=== PATIENT | female | born 1990 | race Caucasian/White ===

== ENCOUNTER 2016-07-31 22:47 | Day surgery (SDC) | payer BC ==
[~2016-07-31] VITALS: Ht 175.3 cm; Wt 112.6 kg
--- NOTE | ~2016-07-31 | ER ---
PATIENT'S NAME: [facility] AGE: 25 Y [address] ROOM: [place] [address] LOCATION: [facility] ADMIT DATE: 08/01/2016 ER/Outpatient Report DISCHARGE DATE: FAMILY PHYSICIAN: Da Mahoney MD ATTENDING PHYSICIAN: Carol Gilbert CHIEF COMPLAINT: Possible kidney stone. TIME OF THE PATIENT ARRIVAL: 2247 hours. TIME OF THE PATIENT EVALUATION: 2255 hours. HISTORY OF PRESENT ILLNESS: This is a 25-year-old female who presents to ER who states she had a sudden- onset of right-sided flank pain approximately 30 minutes prior to her arrival. Does making her feel nauseated and vomiting. She has had no fever or chills and no troubles with urination. She states that she has had a history of kidney stones in the past and this feels exactly like that. She states that she has had to have lithotripsy done in the past and her last kidney stone she thinks was last year. She denies any fever or chills. No troubles with urination. No other problems at this time. ALLERGIES: NO KNOWN ALLERGIES. MEDICATIONS: Please medication list nurse's notes. PAST MEDICAL HISTORY: 1. Hypothyroidism. 2. Kidney stones. PAST SURGERIES: Lithotripsy. SOCIAL HISTORY: Denies smoking, drug, or alcohol use. REVIEW OF SYSTEMS: A 10-point review of systems was completed and was negative with the exception of those discussed in the HPI. PATIENT'S NAME: [facility] AGE: 25 Y [address] ROOM: [place] [address] LOCATION: [facility] ADMIT DATE: 08/01/2016 ER/Outpatient Report DISCHARGE DATE: FAMILY PHYSICIAN: Da Mahoney MD ATTENDING PHYSICIAN: Carol Gilbert PHYSICAL EXAMINATION: VITAL SIGNS: Height 5 feet, 9 inches stated, weight 107.1 kg taken, blood pressure is 128/66, pulse 84, respirations 16, temperature 97.3 degrees tympanically, and saturations 96% on room air. [place] Coma Score is 15. GENERAL: Alert, obese female, in [id number] distress. HEENT: Head: Normocephalic. Eyes: Pupils are equal and reactive to light. She does display moist mucous membranes. LUNGS: Clear to auscultation bilaterally. No wheezes or crackles. Normal respiratory effort. HEART: Regular rate and rhythm. No lifts, thrills, or murmurs. ABDOMEN: Soft. She has mild tenderness in her right-side of her abdomen. She has some mild right-sided CVA tenderness. NEURO: Cranial nerves 2 through 12 grossly intact. Gait is steady without assistance. LABORATORY DATA: Labs and CT are pending. EMERGENCY ROOM COURSE: An IV was established. I did give her some morphine, Toradol, and Zofran along with a liter of fluids while she was here and she remained comfortable for me. I will be turning the care of her over to Dr. Noble at this time due to shift change. The patient and the patient's mother understand and agree with care. BOBBY ASHFORD PA-C FOR MD KOMAL MARES/lanie /[id number] d: 08/01/16 0603 t: 08/07/16 0928, OUTPATIENT REPORT
--- NOTE | ~2016-07-31 | HP ---
PATIENT'S NAME: DEYSI [facility] AGE: 25 Y [address] ROOM: [place] [address] LOCATION: [facility] ADMIT DATE: 08/01/2016 History & Physical DISCHARGE DATE: FAMILY PHYSICIAN: Da Mahoney MD ATTENDING PHYSICIAN: Carol Gilbert DATE OF SERVICE: HISTORY OF PRESENT ILLNESS: The patient is a 25-year-old female, who had acute onset of right flank pain approximately 10 o'clock last night. The pain woke her up and she went to the emergency room, where abdominal and pelvic CT scan revealed a 3 mm proximal right ureter stone with mild hydronephrosis. The patient's urinalysis revealed nitrite positive urine with many bacteria present. In view of this, I discussed immediate cystoscopy with right stent placement with possible followup ESWL in 2 weeks or so. The patient reports a prior history of nephrolithiasis at a very early age in 8th grade requiring cystoscopy with stent placement and ESWL. PAST MEDICAL HISTORY: Significant for hypothyroidism and nephrolithiasis. PAST OPERATIONS: Include cystoscopy with stent placement and ESWL. MEDICATIONS: Synthroid. ALLERGIES: NONE. SOCIAL HISTORY: The patient is nonsmoker with no history of alcohol abuse. PHYSICAL EXAMINATION: GENERAL: Young female, in mild discomfort. EYES: Extraocular motions intact. EARS, NOSE, MOUTH, AND THROAT: No nasal or ear drainage noted. LUNGS: Clear bilaterally. CARDIAC: Regular rhythm and rate. ABDOMEN: Soft with normoactive bowel sounds throughout. There is right flank tenderness with palpation. NEUROLOGIC: Grossly intact. SKIN: Within normal limits. PATIENT'S NAME: DEYSI EVETTE O [facility] AGE: 25 Y [address] ROOM: [address] [address] LOCATION: [facility] ADMIT DATE: 08/01/2016 History & Physical DISCHARGE DATE: FAMILY PHYSICIAN: Da Mahoney MD ATTENDING PHYSICIAN: Carol iGlbert LABORATORY DATA: Again, urinalysis revealed nitrite positive urine with many bacteria present. ASSESSMENT: Infected 3 mm proximal right ureter stone. PLAN: We will take to OR urgently for cystoscopy with right stent placement. Risks and benefits were discussed. MD SACHA BROWN/lanie /[id number] CC: Da Mahoney MD D: [id number] T: [id number] HISTORY & PHYSICAL
--- NOTE | ~2016-07-31 | OR ---
PATIENT'S NAME: DEYSI [facility] AGE: 25 Y [address] ROOM: [place] [address] LOCATION: [facility] ADMIT DATE: 08/01/2016 OR/Procedure Report DISCHARGE DATE: FAMILY PHYSICIAN: Da Mahoney MD ATTENDING PHYSICIAN: Adalberto Farfan SURGEON: Adalberto Farfan MD CATTLE DRIVER: DATE OF PROCEDURE: 08/01/2016 POSTOPERATIVE DIAGNOSES: 1. Right proximal ureter stone. 2. Urinary tract infection. POSTOPERATIVE DIAGNOSES: 1. Right proximal ureter stone. 2. Urinary tract infection. PROCEDURES PERFORMED: Cystoscopy, right retrograde pyelogram, and right stent placement. ANESTHESIA: MAC. COMPLICATIONS: None. INDICATION FOR PROCEDURE: The patient is a 25-year-old female, who had acute onset of right flank pain last night. The patient was seen in the emergency room, where a CT scan performed revealing a 3 mm proximal right ureter stone with mild hydronephrosis. Urinalysis reveals nitrite-positive urine with many bacteria present. DETAILS OF PROCEDURE: After informed consent was obtained, the patient was taken to the operating room urgently. A MAC anesthetic was applied, and she was placed in a dorsal lithotomy position. The groin area was prepped and draped in normal sterile fashion. Cystoscope was introduced into the urethra and bladder without difficulty. The right ureteral orifice was identified and cannulated with a guidewire up into the renal pelvis. Next, a yellow Flexi- Tip catheter was placed over the guidewire into the distal ureter. The guidewire was removed and contrast was injected. The renal collecting system did not demonstrate significant hydronephrosis. The ureter was also not dilated. No definite stone was identified in the ureter. There was a small stone noted in the renal pelvis. Next, the guidewire was replaced and the open-ended catheter removed. A 6-Setswana multi-length ureteral stent was then passed over the guidewire up into the renal pelvis. Radiographic imaging showed good position of the stent. The bladder was empty and the procedure terminated. The patient tolerated the procedure well and transferred recovery PATIENT'S NAME: DEYSI [facility] AGE: 25 Y [address] ROOM: [place] [address] LOCATION: [facility] ADMIT DATE: 08/01/2016 OR/Procedure Report DISCHARGE DATE: FAMILY PHYSICIAN: Da Mahoney MD ATTENDING PHYSICIAN: Adalberto Farfan room in good condition. ADALBERTO FARFAN MD SACHA/modl /[id number] CC: Da Mahoney MD d: 08/01/16 1110 t: 08/06/16 1514, OPERATIVE SUMMARY
--- NOTE | ~2016-07-31 | ER ---
PATIENT'S NAME: EVETTE JO [facility] AGE: 25 Y [address] ROOM: [address] [address] LOCATION: [facility] ADMIT DATE: 08/01/2016 ER/Outpatient Report DISCHARGE DATE: FAMILY PHYSICIAN: Da Mahoney MD ATTENDING PHYSICIAN: Carol Gilbert HISTORY OF PRESENT ILLNESS: I received handoff of this patient to my primary responsibility from Ms Jose Alberto GRANADOS at 0000 hours. The patient's presentation is consistent with kidney stone versus UTI. Labs and imaging are pending at that time of hand off. Her labs returned concerning for UTI with nitrites in her urine. Minimal pyuria. The patient's vital signs remained appropriate. No elevation of her white count, renal functions appropriate. CT stone protocol reveals a small proximal right ureteral stone with mild hydronephrosis according to Radiology. In the setting of nitrite positive urine, I did contact Dr. Gilbert, urologist. Based on our discussion, he will take the patient to the operating room for stenting. The patient was given ciprofloxacin. Pain was adequately controlled with morphine. MD BORA MARES/lanie /[id number] d: 08/01/16 1211 t: 08/07/16 0925, OUTPATIENT REPORT
[2016-07-31 23:45] LABS: BASOPHIL # 0.1 K/uL (0.0-0.2); BASOPHIL % 0.8 %; EOSINOPHIL # 0.3 K/uL (0.0-0.5); HEMOGLOBIN 13.8 g/dL (11.0-15.0); IMMATURE GRANULOCYTE % 0.2 %; LYMPHOCYTE # 2.7 K/uL (0.8-4.0); LYMPHOCYTE % 27.1 %; MCH 29.2 pg (27.0-34.0); MCHC 33.7 gm/dL (32.0-36.5); MCV 86.9 fl (83.0-98.0); NEUTROPHIL # (ANC) 5.9 K/uL (1.8-7.8); NEUTROPHIL % 58.9 %; NRBC % 0 /100WBC (0-0.00); PLATELET COUNT 310 K/uL (150-450); RBC 4.72 M/uL (3.50-5.00); RDW-CV 12.3 % (11.9-14.6)
[2016-08-01 00:01] LABS: ALBUMIN 3.8 gm/dL (3.5-5.0); ALK PHOS 67 IU/L (33-138); ALT 18 IU/L (12-78); ANION GAP 10.8 (10.0-19.0); AST 17 IU/L (10-40); BLOOD UREA NITROGEN 11 mg/dL (6-24); CALCIUM 8.5 mg/dL (8.5-10.5); CHLORIDE 106 mMol/L (96-110); CO2 28 mMol/L (22-32); CREATININE 0.8 mg/dL (0.5-1.1); ESTIMATED GFR (MDRD EQUATION) > 60; POTASSIUM 3.8 mMol/L (3.7-5.1); SODIUM 141 mMol/L (135-145); TOTAL BILIRUBIN 0.4 mg/dL (0.0-1.5); TOTAL PROTEIN 7.5 g/dL (6.0-8.4)
[2016-08-01 00:31] LABS: BLOOD URINE 250 /UL (NEGATIVE); GLUCOSE URINE NEGATIVE (NEGATIVE); KETONE URINE 5 mg/dL (NEGATIVE); LEUKOCYTES URINE 100 /UL (NEGATIVE); NITRITE URINE POSITIVE (NEGATIVE); PROTEIN URINE 100 mg/dL (NEGATIVE); SPEC GRAVITY URINE 1.025 (1.003-1.035); UROBILINOGEN URINE 1 mg/dL (NORMAL)
[2016-08-01 00:39] LABS: COLOR URINE YELLOW (YELLOW); TURBIDITY URINE 2+ (CLEAR)
[2016-08-01 00:42] LABS: BACTERIA URINE MANY (NEGATIVE); RBC URINE 20-50 #/HPF (NEGATIVE)
[2016-08-01] MEDS ORDERED: LEVOTHROID(SYN75 MCG PO (05:37)
[2016-08-01] MEDS ORDERED: CODEINE30 MG PO (10:25)
[2016-08-01] MEDS ORDERED: BACTRIM DS1 TAB PO (10:26)
== END 2016-08-01 12:15 | disposition disaster alternative care site (69) ==
LOC: GMED 22:47 → G3N 08-01 02:23 → GSDC 08-01 02:23
PROVIDERS: Emergency Medicine
PROC: 0T768DZ Dilation of Right Ureter with Intraluminal Device, Via Natural or Artificial Opening Endoscopic (ICD-10-PCS; principal; 2016-08-01)
PROC: BT1DZZZ Fluoroscopy of Right Kidney, Ureter and Bladder (ICD-10-PCS; 2016-08-01)
DX: N13.6 Pyonephrosis (principal); E03.9 Hypothyroidism, unspecified
CPT/HCPCS: C1769; J0744; J1100; J1885; J2270; J2405; J3010; J7030; J7050

== ENCOUNTER → 2016-08-13 | Day surgery (SDC) | payer BC ==
[~2016-08-13] VITALS: Ht 177.8 cm; Wt 105.6 kg
[~2016-08-13] MED LIST: BACTRIM DS1 TAB PO; CODEINE30 MG PO; LEVOTHROID(SYN75 MCG PO
--- NOTE | ~2016-08-13 | OR ---
PATIENT'S NAME: EVETTE JO [facility] AGE: 25 Y [address] ROOM: [place] [address] LOCATION: [facility] ADMIT DATE: 08/13/2016 OR/Procedure Report DISCHARGE DATE: FAMILY PHYSICIAN: Da Mahoney MD ATTENDING PHYSICIAN: Carol Gilbert SURGEON: Carol Gilbert MD RESPIRATORY PHYSICIAN: DATE OF PROCEDURE: 08/13/2016 PREOPERATIVE DIAGNOSIS: Bilateral nephrolithiasis. POSTOPERATIVE DIAGNOSIS: Bilateral nephrolithiasis. PROCEDURE PERFORMED: 1. Bilateral extracorporeal shock wave lithotripsy. 2. Cystoscopy with right stent removal. ANESTHESIA: General. COMPLICATIONS: None. INDICATION FOR PROCEDURE: The patient is a 25-year-old female who previously had cystoscopy with right stent placement for a 3-mm proximal right ureter stone. On CT scan, she was noted to have bilateral nephrolithiasis. The patient presents for definitive treatment. DETAILS OF PROCEDURE: After informed consent was obtained, the patient was taken to the operating room. A general anesthetic was applied, and she was placed in supine position on the lithotripsy table. Fluoroscopy was used to target 5 x 4 mm right renal pelvic stone. She received shocks starting at 14 kilovolts and gradually increased to 24 kilovolts. She received a total of 2000 shocks with good fragmentation of the stone. The patient was then placed in a frog-leg position. The groin area was prepped and draped in normal sterile fashion. A flexible cystoscope was introduced into the urethra and bladder without difficulty. Her right ureteral stent was identified extruding from the right ureteral orifice. This was engaged with a grasping forceps and removed. The patient then repositioned on the lithotripsy table in a supine position and her left-sided 5 x 4 mm stone was identified final fluoroscopy. She received shocks starting at 20 kilovolts and gradually increased to 24 kilovolts. 1700 shocks were performed and the stone appeared to fragment well. A smaller 3-mm left renal pelvic stone was treated with 1000 shocks at 24 kilovolts and this fragmented well with treatment. The patient tolerated her procedure well and was transferred to recovery room in good condition. PATIENT'S NAME: EVETTE JO [facility] AGE: 25 Y [address] ROOM: [place] [address] LOCATION: [facility] ADMIT DATE: 08/13/2016 OR/Procedure Report DISCHARGE DATE: FAMILY PHYSICIAN: Da Mahoney MD ATTENDING PHYSICIAN: Carol Gilbert MD SACHA BROWN/modl /[id number] CC: Da Mahoney MD d: 08/13/16 2314 t: 08/27/16 1453, OPERATIVE SUMMARY
== END | disposition disaster alternative care site (69) ==
LOC: GPOC 08-09 09:00 → GSDC 09:00
PROC: 0TF3XZZ Fragmentation in Right Kidney Pelvis, External Approach (ICD-10-PCS; principal; 2016-08-13)
PROC: 0TP98DZ Removal of Intraluminal Device from Ureter, Via Natural or Artificial Opening Endoscopic (ICD-10-PCS; 2016-08-13)
DX: N13.2 Hydronephrosis with renal and ureteral calculous obstruction (principal); E03.9 Hypothyroidism, unspecified
CPT/HCPCS: J1956; J2001; J7120

== ENCOUNTER → 2016-09-03 | Outpatient (CLI) | payer BC | LOC: GRAD 10:00 | DX: Z09 Encounter for follow-up examination after completed treatment for conditions other than malignant neoplasm (principal) ==